=== PATIENT | female | born 1945 | race Caucasian/White ===

== ENCOUNTER 2024-07-05 10:10 | Inpatient (IN) | payer MEDICARE, SELFPAY ==
[2024-07-05] VITALS (16 sets, daily range): BP systolic 93–187; BP diastolic 50–101; PULSE 61–165; RESP 16–25; TEMP 36–36.8; O2SAT 91–98; BMI 25.4
--- NOTE | ~2024-07-05 | XR_ITS ---
EXAMINATION: XR CHEST CLINICAL INFORMATION: Chest pain. COMPARISON: None available. TECHNIQUE: Frontal view of the chest was obtained. FINDINGS: Diffuse interstitial and pulmonary vascular prominence with bilateral pleural effusions and airspace opacities, right greater than left. No pneumothorax. Unremarkable cardiomediastinal silhouette. Left breast implant with left axillary surgical clips. XR/XR chest 1V IMPRESSION: Interstitial and pulmonary vascular prominence with lateral pleural effusions and airspace opacities, right greater than left. Findings can be seen in the setting of pulmonary edema. Electronically signed by: Godwin Muhammad MD 07/05/2024 12:52 PM [facility]
--- NOTE | 2024-07-05 10:30 | ECG_ITS ---
Test Reason : palpatations Blood Pressure : / mmHG Vent. Rate : 115 BPM Atrial Rate : 384 BPM P-R Int : 000 ms QRS Dur : 092 ms QT Int : 358 ms P-R-T Axes : 000 019 079 degrees QTc Int : 495 ms Atrial flutter with variable A-V block Minimal voltage criteria for LVH, may be normal variant ( Serge product ) Nonspecific ST and T wave abnormality Abnormal ECG No previous ECGs available Referred By: Lino Thompson Electronically Signed By:ANA MARIA VILLARREAL MD
--- NOTE | 2024-07-05 10:32 | ED.ARRPALP ---
HPI - Arrhythmia/Palpitations General Chief Complaint: Arrhythmia/Palpitations Stated Complaint: SOB,AFIB Time Seen by Provider: 07/05/24 10:25 Source: patient and EMS Mode of arrival: EMS Limitations: no limitations History of Present Illness HPI narrative: this is a very pleasant 78 years old with no medical problems presented to the emergency department via ambulance complaining of shortness of breath or palpitation she was found by the global account director with heart rate about 190 irregularly irregular she received pre-hospital and 15 mg of diltiazem IV complaint: rapid heart beat Onset (ago): week(s) Duration: constant Severity: moderate Context: occurred during exertion Associated symptoms: denies other symptoms Related Data Home Medications ?Medication ?Instructions ?Recorded ?Confirmed multivitamin 1 tab PO DAILY 07/05/24 07/05/24 Allergies Allergy/AdvReac Type Severity Reaction Status Date / Time No Known Allergies Allergy Verified 07/05/24 10:21 Review of Systems Cardiovascular: Cardiovascular: Reports no additional cardiovascular complaints Respiratory: Respiratory: Reports no additional respiratory complaints [facility] Past Medical History [facility] Narrative: denies any major medical problems Social History Social History Advance Directives: No Advance Directives Information Provided: Yes Physical Exam Vital Signs: Vital Signs: Last Vital Signs Temp 98.3 F 07/05/24 10:19 Pulse 85 07/05/24 14:18 Resp 22 H 07/05/24 14:18 BP 176/93 H 07/05/24 14:18 Pulse Ox 94 07/05/24 14:18 O2 Del Method Room Air 07/05/24 14:18 BMI result Body Mass Index 25.4 Const: Other: she looks well she is not toxic she is tachycardic a bit tachypneic General: cooperative Nutritional Appearance: average body habitus HEENT: Head: Yes normal to inspection Ears: hearing grossly normal bilaterally General nose exam: Normal external nose present Face and sinus: Yes normal facial exam Mouth: Normal oral and palatal mucosa present Throat: Yes posterior oropharynx normal Neck: Other: no distress Neck: Yes normal visual inspection Chest: Chest palpation & inspection: normal inspection of the chest Resp: Effort & Inspection: normal respiratory effort Auscultation: clear to auscultation bilaterally Cardio: Jugular venous distension: no JVD Rate: regular rate and bradycardic Rhythm: abnormal rhythm GI: Inspection: Yes normal to inspection Auscultation: normal bowel sounds : General: Yes no CVA tenderness Back/Spine/Pelvis: Back: no CVA tenderness Skin: General skin exam: no rashes or lesions noted Medications Administered Generic Name Dose Route Start Last Admin Trade Name Freq PRN Reason Stop Dose Admin Diltiazem HCl 125 mg/ Sodium 125 mls @ 0 mls/hr 07/05/24 10:45 07/05/24 10:50 Chloride IVCONT 10 mg/hr .Q0M SARAY 10 mls/hr Administration Protocol Per Protocol Metoprolol Tartrate 25 mg 07/05/24 13:00 07/05/24 13:50 Metoprolol Tartrate 25 Mg Tablet PO 25 mg Q6H SARAY Administration Protocol Discontinued Medications Generic Name Dose Route Start Last Admin Trade Name Freq PRN Reason Stop Dose Admin Furosemide 20 mg 07/05/24 11:45 07/05/24 11:50 Furosemide 20 Mg/2 Ml Vial IVPUSH 07/05/24 11:46 20 mg ONCE ONE Administration Protocol Medical Decision Making Medical Decision Making [facility] Narrative: patient presented to the ED complaining of shortness of breath and tachycardia we will get EK Differential Diagnosis Differential Diagnoses: The differential diagnosis associated with the presentation includes AFib, CHF Admission/Observation Consideration of admission/observation: Escalation of care including admission/observation considered Consult Healthcare Provider Management of the patient was discussed with: Hospitalist Lab Data [facility] Lab Attestation statement: I reviewed the patient's lab results. 07/05/24 11:12 07/05/24 11:12 Labs: Lab Results 07/05/24 Range/Units 11:12 WBC 7.4 (4.8-10.8) X10*3/uL RBC 4.35 (4.20-5.50) X10*6/uL Hgb 12.4 (12.0-16.0) g/dl Hct 38.3 (37.0-47.0) % MCV 88.0 (80.0-98.0) fL MCH 28.5 (27.0-33.0) pg MCHC 32.4 (31.0-35.0) g/dl RDW 14.0 (11.0-16.0) % Plt Count 313 (160-400) X10*3/uL MPV 9.5 (9.4-12.3) fL Immature Gran % (Auto) 0.3 (0.0-0.4) % Neut % (Auto) 81.7 H (45-73) % Lymph % (Auto) 9.4 L (20-40) % [place] % (Auto) 6.5 (2-11) % Eos % (Auto) 1.8 (0-4) % Baso % (Auto) 0.3 (0-2) % Lymph # (Auto) 0.7 L (1.2-4.9) X10*3/uL [place] # (Auto) 0.5 (0.1-1.2) X10*3/uL Eos # (Auto) 0.1 (0.0-0.4) X10*3/uL Baso # (Auto) 0.0 (0.0-0.2) X10*3/uL Abs Immat Gran (auto) 0.02 (0.00-0.03) X10*3/uL Absolute Neuts (auto) 6.0 (2.0-8.3) x10*3/uL Absolute Nucleated RBC 0.000 (0.0-0.012) X10*3/uL Nucleated RBC % (auto) 0.0 (0.0-0.2) /100WBC Sodium 138 (135-145) mmol/L Potassium 3.7 (3.3-5.1) mmol/L Chloride 105 (96-108) mmol/L Carbon Dioxide 24 (22-29) mmol/L Anion Gap 13 (12-20) BUN 12 (9-16) mg/dL Creatinine 0.67 (0.5-1.4) mg/dL Estim Creat Clear Calc 55.6 Estimated GFR > 60 Random Glucose 112 (60-115) mg/dL Calcium 9.5 (8.4-10.2) mg/dL Total Bilirubin 0.5 (0.0-1.0) mg/dL AST 34 H (5-31) U/L ALT 35 H (0-31) U/L Alkaline Phosphatase 28 L (39-117) U/L Troponin I High Sens 11.9 (<3.5-17.0) ng/L B-Natriuretic Peptide 591 H (<100) pg/mL Total Protein 7.7 (6.5-8.0) g/dL Albumin 3.9 (3.5-5.0) g/dL TSH 1.27 (0.32-4.0) uIU/mL Independent Interpretation I performed an independent interpretation of an: EKG and Plain X-Ray Interpretation: I personally reviewed interpreted the EKG as rapid atrial fibrillation I personally reviewed interpreted chest x-ray as congestive heart failure and right pleural effusion Radiology Impression Discussion of test interpretation with radiology: I have reviewed the radiologist's reading. Critical Care Time Critical Care Time Critical Care Time: Yes Total Critical Care Time: 60 Attestation: IV cardizem and titration Discharge Plan Discharge Clinical Impression: Atrial fibrillation with rapid ventricular response Patient Disposition: Admitted As Inpatient
[2024-07-05] MEDS: dilTIAZem HCL 125 MG in 0.9 % Sodium Chloride 100 ML 10 MG IVCONT (10:50)
[2024-07-05 11:19] LABS: Basophils Percent Auto 0.3 % (0-2); Eosinophils Absolute Auto 0.1 X10*3/uL (0.0-0.4); Eosinophils Percent Auto 1.8 % (0-4); Hematocrit 38.3 % (37.0-47.0); Hemoglobin 12.4 g/dl (12.0-16.0); Imm Gran Abs Auto 0.02 X10*3/uL (0.00-0.03); Imm Gran Pct Auto 0.3 % (0.0-0.4); Lymphocytes Absolute Auto 0.7 X10*3/uL (1.2-4.9); Lymphocytes Percent Auto 9.4 % (20-40); MANUAL DIFF FLAG NO; Mean Corpuscular HGB Conc 32.4 g/dl (31.0-35.0); Mean Corpuscular Hemoglobin 28.5 pg (27.0-33.0); Mean Platelet Volume 9.5 fL (9.4-12.3); Monocytes Absolute Auto 0.5 X10*3/uL (0.1-1.2); Monocytes Percent Auto 6.5 % (2-11); Neutrophils Percent Auto 81.7 % (45-73); Platelet Count 313 X10*3/uL (160-400); Red Blood Count 4.35 X10*6/uL (4.20-5.50); White Blood Count 7.4 X10*3/uL (4.8-10.8)
[2024-07-05 11:34] LABS: Albumin Level 3.9 g/dL (3.5-5.0); Alkaline Phosphatase 28 U/L (39-117); Anion Gap 13 (12-20); Aspartate Amino Transferase 34 U/L (5-31); Bilirubin Total 0.5 mg/dL (0.0-1.0); Blood Urea Nitrogen 12 mg/dL (9-16); Calcium 9.5 mg/dL (8.4-10.2); Carbon Dioxide 24 mmol/L (22-29); Chloride 105 mmol/L (96-108); Creatinine Clr Calc Pharmacy 55.6; Estimated Glomerular Filt Rate > 60; Glucose Random 112 mg/dL (60-115); Potassium 3.7 mmol/L (3.3-5.1); Sodium 138 mmol/L (135-145); Total Protein 7.7 g/dL (6.5-8.0)
[2024-07-05 11:38] LABS: Troponin-I High Sensitivity 11.9 ng/L (<3.5-17.0)
[2024-07-05 11:42] LABS: B Type Natriuretic Peptide 591 pg/mL (<100)
[2024-07-05] MEDS: Furosemide 20 MG/2 ML VIAL IVPUSH ×2 (11:50→18:01)
[2024-07-05 11:52] LABS: Alanine Aminotransferase 35 U/L (0-31)
--- NOTE | 2024-07-05 12:22 | PHA.MEDREC ---
Pharmacy Consult ? Medication Reconciliation Pharmacy has completed the medication reconciliation. Spoke to patient at bedside, confirmed she takes no prescription which matches claims. She only takes a multivitamin daily.
--- NOTE | 2024-07-05 13:04 | P.HPHOSP_ITS ---
History of Present Illness Date of Service: 07/05/24 Chief Complaint: Shortness of breath/palpitations 78-year-old female patient with past medical history significant for breast cancer diagnosed in 2004 status post left breast mastectomy/status post chemotherapy moved to this area 11 years ago from [place], denies prior history of hypertension, no OH no CHF no diabetes, no hypertension presented to the emergency room with on and off episodes of palpitations and shortness of breath of couple weeks duration but this morning coming out of shower she noticed leg swelling therefore got concerned and came to the emergency room and noted to be in atrial fibrillation with rapid ventricular rate in 190s patient treated with 15 mg of IV diltiazem subsequently placed on IV diltiazem drip, received 1 dose of IV Lasix 20 mg, at present patient is feeling a little better less short of breath, complaining of persistent mild palpitations, denies chest pain, no lightheadedness, no dizziness, no syncope, workup in the ED showed normal electrolytes, renal function, troponin and CBC, have elevated BNP 591, EKG showed atrial flutter, will admit to [facility] due to new onset atrial fibrillation and acute CHF. Review of Systems 2 Review of Systems: General no headache no dizziness, no fever chills. CVS no chest pain, + palpitation. Respiratory no cough, shortness of breath. Gastrointestinal no nausea no vomiting, no abdominal pain no urgency, no frequency Musculoskeletal no pain All other system reviewed and are negative ON LICENSE OF [facility] Pertinent family history: No family history of atrial fibrillation, no diabetes, no hypertension Social History Advance Directives: No Advance Directives Information Provided: Yes Meds Allergies Allergy/AdvReac Type Severity Reaction Status Date / Time No Known Allergies Allergy Verified 07/05/24 10:21 Active Medications: Current Medications Acetaminophen (Acetaminophen 325 Mg Tablet) 650 mg PO Q6H PRN PRN Reason: Pain, Mild (Pain Scale 1-3), fever or headache Calcium Carbonate (Calcium Carbonate 750 Mg Tab.Chew) 750 mg PO Q4H PRN PRN Reason: Heartburn Furosemide (Furosemide 20 Mg/2 Ml Vial) 20 mg IVPUSH BID@0900,1800 SARAY; Protocol Diltiazem HCl 125 mg/ Sodium (Chloride) 125 mls @ 0 mls/hr IVCONT .Q0M SARAY; Protocol Last Admin: 07/05/24 10:50 Dose: 10 mg/hr, 10 mls/hr Magnesium Hydroxide (Milk Of Magnesia 30 Ml Oral.Susp) 30 ml PO DAILY PRN PRN Reason: Constipation Melatonin (Melatonin 3 Mg Tablet) 6 mg PO BEDTIME PRN PRN Reason: Insomnia Metoprolol Tartrate (Metoprolol Tartrate 25 Mg Tablet) 25 mg PO Q6H [facility]; Protocol Ondansetron HCl (Ondansetron Hcl 4 Mg/2 Ml Vial) 4 mg IVPUSH Q8H PRN PRN Reason: Nausea and Vomiting Polyethylene Glycol (Polyethylene Glycol 3350 17 Gm Powd.Pack) 17 gm PO DAILY PRN PRN Reason: Constipation Sodium Chloride (0.9 % Sodium Chloride Flush 3 Ml Syringe) 3 ml IVFLUSH QSHIFT [facility] Home Medications ?Medication ?Instructions ?Recorded ?Confirmed ?Last Taken ?Type multivitamin 1 tab PO DAILY 07/05/24 07/05/24 07/04/24 History Physical Exam 2 Vital Signs and Narrative: Vital Signs: Last Vital Signs Temp 98.3 F 07/05/24 10:19 Pulse 109 H 07/05/24 11:30 Resp 19 07/05/24 11:30 BP 166/101 H 07/05/24 11:50 Pulse Ox 94 07/05/24 11:30 O2 Del Method Room Air 07/05/24 11:30 BMI result Body Mass Index 25.4 Const: Other: General resting comfortably in no acute distress. Anicteric sclera Neck no JVD. CVS regular rate rhythm, Respiratory lungs bibasilar crackles, no respiratory distress Gastrointestinal abdomen soft, non tender, bowel sounds audible, no guarding , no rigidity. Extremities mild pitting edema. Neuro non focal Skin no rash Psych appropriate affect Results Labs 07/05/24 11:12 07/05/24 11:12 Labs: Laboratory Results - last 24 hr 07/05/24 11:12 MCV 88.0 MCH 28.5 MCHC 32.4 RDW 14.0 Plt Count 313 MPV 9.5 Immature Gran % (Auto) 0.3 Neut % (Auto) 81.7 H Lymph % (Auto) 9.4 L [place] % (Auto) 6.5 Eos % (Auto) 1.8 Baso % (Auto) 0.3 Lymph # (Auto) 0.7 L [place] # (Auto) 0.5 Eos # (Auto) 0.1 Baso # (Auto) 0.0 Abs Immat Gran (auto) 0.02 Absolute Neuts (auto) 6.0 Absolute Nucleated RBC 0.000 Nucleated RBC % (auto) 0.0 Anion Gap 13 Estim Creat Clear Calc 55.6 Estimated GFR > 60 Random Glucose 112 Calcium 9.5 Total Bilirubin 0.5 AST 34 H ALT 35 H Alkaline Phosphatase 28 L Troponin I High Sens 11.9 B-Natriuretic Peptide 591 H Total Protein 7.7 Albumin 3.9 Imaging Radiologist's Impressions: Impressions Chest X-Ray 07/05/24 10:30 IMPRESSION: Interstitial and pulmonary vascular prominence with lateral pleural effusions and airspace opacities, right greater than left. Findings can be seen in the setting of pulmonary edema. Electronically signed by: Godwin Muhammad MD 07/05/2024 12:52 PM [facility] Assessment and Plan (1) Atrial fibrillation with rapid ventricular response: Status: Acute Plan 78-year-old female with past medical history significant for breast cancer in 2004 with no other acute medical issues presented to [facility] due to symptoms of shortness of breath and palpitations of couple weeks duration this morning noted to have bilateral lower extremity edema therefore became concerned and came to ED and noted to be in atrial fibrillation with RVR, New onset atrial fibrillation/flutter No history of coronary artery disease/no hypertension/no history of alcohol abuse or smoking Continue IV Cardizem drip add metoprolol 25 q.6 hours wean Cardizem drip Chads vascular score of 3, will add Eliquis Stable electrolytes and renal function check TSH Echocardiogram Cardiology consult New onset unspecified congestive heart failure question related to atrial fibrillation Treat with IV Lasix 20 mg b.i.d. Strict Is&Os, daily weight Follow echo DVT prophylaxis with Eliquis Full code In my clinical judgment patient requires 2 night inpatient hospitalization for management of new onset atrial fibrillation with acute congestive heart failure requiring IV Cardizem drip and expert consultation. Quality Stroke Does the patient have a stroke diagnosis?: No VTE Prior VTE?: No VTE Risk Level:: Medical - moderate - high VTE Device Contraindication: Treatment Not Indicated VTE Drug Contraindication: N/A - Med Ordered
[2024-07-05 13:34] LABS: Thyroid Stimulating Hormone 1.27 uIU/mL (0.32-4.0)
[2024-07-05] MEDS: Metoprolol Tartrate 25 MG TABLET PO ×2 (13:50→19:57)
[2024-07-05] MEDS: 0.9 % Sodium Chloride Flush 3 ML SYRINGE IVFLUSH (17:24)
[2024-07-05] MEDS: Apixaban 5 MG TABLET PO (20:00)
[2024-07-06] VITALS (8 sets, daily range): BP systolic 122–139; BP diastolic 65–98; PULSE 78–90; RESP 16–18; TEMP 36.4–36.7; O2SAT 92–96
[2024-07-06] MEDS: Metoprolol Tartrate 25 MG TABLET PO ×4 (02:14→20:33)
[2024-07-06] MEDS: 0.9 % Sodium Chloride Flush 3 ML SYRINGE IVFLUSH ×3 (02:16→14:54)
--- NOTE | 2024-07-06 07:00 | CA_ITS ---
Transthoracic Echocardiogram Patient (Last, First, Middle): Cindy Khan, Gender: Female Date of : 1945 Age: 78 Procedure Date: 07/06/2024 Procedure Type: Transthoracic Echocardiogram Location: [facility] [place] Height: 152.4 cm Weight: 58.97 kg BSA: 1.55 m2 Heart Rate: 95 bpm BP: 166 / 101 mmHg Manager Clinical: PENG Harris MD: Hans Rosa MD Construction Plumber: Bony Sultana MD Symptoms: atfibrillation Study Quality: Adequate ECG Rhythm: Atrial Fibrillation Conclusions: - 1. Mildly reduced LV ejection fraction 45-50% with elevated filling pressures 2. At least moderately dilated left atrium 3. Mild aortic stenosis 4. Severe mitral calcification with mild mitral regurgitation 5. Normal calculated RV systolic pressure with mildly elevated right atrial pressures 6. No gross pericardial effusion Findings Left Ventricle Normal left ventricular cavity size. There is normal left ventricular wall thickness. The left ventricular systolic function is mildly decreased. The visually estimated ejection fraction is between 45-50%. Elevated filling pressures. E/E prime ratio is >15, consistent with elevated filling pressures. Right Ventricle Normal right ventricular cavity size. There is moderately decreased right ventricular systolic function. Atria The left atrium is moderately dilated. There is no evidence of interatrial shunt. The right atrium is mildly dilated. Aortic Valve There is mild calcification of the aortic valve. There is mild aortic valve stenosis. The mean gradient is 7 mmHg. The aortic valve area is 1.46 cm2. There is no aortic valve regurgitation. Mitral Valve There is mild anterior and severe posterior mitral leaflet thickening. There is severe mitral annular calcification. There is mild mitral valve regurgitation. There is no mitral valve stenosis. Pulmonic Valve The pulmonic valve is likely normal. Tricuspid Valve Normal tricuspid valve structure. There is mild tricuspid valve regurgitation. Mildly elevated right atrial pressure. There is no evidence of pulmonary hypertension. Great Vessels The pulmonary artery was not well visualized. There is no dilatation of the ascending aorta measuring 3.10 cm. Venous The inferior vena cava is mildly dilated and collapses less than 50% with inspiration. Pericardium/Pleural There is no evidence of pericardial effusion. Prior Study Comparison No prior study available for comparison. Measurements 2D Linear Measurements IVSd: 1.12 0.6-0.9/0.6-1.0 cm LVIDd: 3.82 3.9-5.3/4.2-5.9 cm LVIDd Index: 2.46 2.4-3.2/2.2-3.1 cm/m2 LVIDs: 2.33 2.0-3.6 cm LVPWd: 0.99 0.7-1.1 cm LA Diam: 4.60 2.7-3.8/3.0-4.0 cm LAIDs Index: 2.97 1.5-2.3 cm/m2 LV Mass: 158.90 67-162/88-224 g LV Mass Index: 102.51 43-95/49-115 g/m2 LVOT Diam: 1.90 3.0+(-)1.3 cm 2D Systolic Function EF 4C: 45.30 >55% EF 2C: 48.30 >55% Mitral Valve MV VTI: 0.27 MV Pk Filiberto: 1.40 MV Mn Filiberto: 0.81 MV Pk Grad: 8.00 MV Mn Grad: 3.00 MV Pk E: 1.36 MV Decel Time: 130.00 E'Lateral: 5.62 E'Medial: 5.88 E/E' Med: 23.10 E/E' Lat: 24.20 PHT: 38.00 MVA PHT: 5.79 MVA Continuity: 1.78 Decel [place]: 10.40 Aortic Valve AoV Pk Filiberto: 1.64 AoV Mn Filiberto: 1.26 AoV VTI: 0.33 AoV Pk Grad: 11.00 Aov Mn Grad: 7.00 JANEE Cont.VTI: 1.46 LVOT LVOT Pk Filiberto: 0.94 LVOT Mn Filiberto: 0.69 LVOT VTI: 0.17 LVOT Pk Grad: 4.00 LVOT Mn Grad: 2.00 LVOT Diam: 1.90 LVOT Area: 2.84 Diastolic Function MV Pk E: 1.36 E'Medial: 5.88 E/E' Med: 23.10 E' Laterial: 5.62 E/E' Lat: 24.20 Right Ventricle TAPSE (mm): 12.90 TVS' Filiberto: 8.16 Tricuspid Valve TR Pk Filiberto: 2.23 TR Pk Grad: 20.00 RA Press: 8.00 RVSP: 28.00 Great Vessels Aorta Sinus of Valsalva: 3.10 2.0-3.5 cm Ao Asc: 3.10 2.1-3.4 cm Ao Arch: 3.10 Pulmonary Valve PV Pk Filiberto: 0.89 Peak PV Grad: 3.00 Updated in Other Vendor System with Status of Final Bony Sultana MD electronically signed on 07/06/2024 4:41:36 PM with status of Final
--- NOTE | 2024-07-06 08:21 | MHC.CM.PN ---
CM met with Patient at bedside and addressed IMM with her; original was given to Patient and a copy has been placed on the chart. Patient lives alone in a Townhouse and she still works and is functionally independent. Home/self care is the goal and CM has initiated and will follow for dc planning. PCP is Dr. Virginia Aggarwal, HCP is Sister/Nahomi and Friend/Sharla will transport to home.
[2024-07-06 08:32] LABS: B Type Natriuretic Peptide 907 pg/mL (<100)
[2024-07-06 08:44] LABS: Anion Gap 16 (12-20); Blood Urea Nitrogen 14 mg/dL (9-16); Calcium 9.3 mg/dL (8.4-10.2); Carbon Dioxide 22 mmol/L (22-29); Chloride 101 mmol/L (96-108); Cholesterol 138 mg/dL (<200); Creatinine Clr Calc Pharmacy 47.7; Estimated Glomerular Filt Rate > 60; Glucose Random 99 mg/dL (60-115); HDL Cholesterol 40 mg/dL (>40); LDL Cholesterol Calculated 81 mg/dL (<100); Potassium 3.5 mmol/L (3.3-5.1); Sodium 135 mmol/L (135-145); Triglycerides 85 mg/dL (<150)
[2024-07-06] MEDS: Apixaban 5 MG TABLET PO ×2 (08:49→20:33)
[2024-07-06] MEDS: Furosemide 20 MG/2 ML VIAL IVPUSH ×2 (08:49→19:12)
--- NOTE | 2024-07-06 09:53 | PM.CNCAR ---
History of Present Illness History of Present Illness Date of Service: 07/06/24 Requesting physician: Hans Rosa Consult reason: atrial fibrillation and congestive heart failure Chief complaint: sob Narrative: I was consulted to see Cindy in cardiology consultation today for new onset atrial fibrillation findings suggestive of congestive heart failure. She has absolutely pleasant 78-year-old female who is very active and still works and remains very active, no prior chronic medical problems present hospital with progressive shortness of breath over the last couple weeks and then on day of presentation she notice shortness of breath with minimal exertion associated with leg edema and then felt her heart was racing. She was therefore decided to come to the emergency room. In the emergency room she was noted to be in atrial fibrillation rapid ventricular response which is new onset for her of unknown duration as well as elevated BNP and findings consistent with congestive heart failure. She was therefore admitted and started on rate control therapy initially with IV Cardizem subsequently on p.o. metoprolol rate is adequately controlled. She was also given Lasix IV with adequate urine output although not adequately measured. She says symptoms have improved significantly including leg edema. Today she feels well. She has been ambulating around the [place] and has had no new symptoms. Heart rate is better controlled. Review of Systems Constitutional: Constitutional: Reports no additional constitutional complaints Eyes: Eyes: Reports no additional eye complaints Cardiovascular: Cardiovascular: Denies chest pain, Denies syncope, Reports leg edema, Reports palpitations and Reports dyspnea on exertion Respiratory: Respiratory: Reports no additional respiratory complaints and Reports dyspnea on exertion Gastrointestinal: Gastrointestinal: Reports no additional gastrointestinal complaints Musculoskeletal: Musculoskeletal: Reports no additional musculoskeletal complaints Integumentary/Breasts: Skin/Breast: Reports system reviewed and no additional complaints, except as docu Neurologic: Reports system reviewed and no additional complaints, except as documented and Denies syncope Psychiatric: Psychiatric: Reports no additional psychiatric complaints Endocrine: Endocrine: Reports no additional endocrine complaints and Reports palpitations PMFSH Social History Social History Household Members: None Housing: House Do you presently have visiting nurse or other home services: No Patient Tobacco Use Status: Never used Tobacco e-Cigarette/Vaping Use: Never Used Second Hand Smoke Exposure: No service: No Meds Allergies Allergy/AdvReac Type Severity Reaction Status Date / Time No Known Allergies Allergy Verified 07/05/24 10:21 Active Medications: Current Medications Acetaminophen (Acetaminophen 325 Mg Tablet) 650 mg PO Q6H PRN PRN Reason: Pain, Mild (Pain Scale 1-3), fever or headache Apixaban (Apixaban 5 Mg Tablet) 5 mg PO BID [facility] Last Admin: 07/06/24 08:49 Dose: 5 mg Calcium Carbonate (Calcium Carbonate 750 Mg Tab.Chew) 750 mg PO Q4H PRN PRN Reason: Heartburn Furosemide (Furosemide 20 Mg/2 Ml Vial) 20 mg IVPUSH BID@0900,1800 [facility]; Protocol Last Admin: 07/06/24 08:49 Dose: 20 mg Magnesium Hydroxide (Milk Of Magnesia 30 Ml Oral.Susp) 30 ml PO DAILY PRN PRN Reason: Constipation Melatonin (Melatonin 3 Mg Tablet) 6 mg PO BEDTIME PRN PRN Reason: Insomnia Metoprolol Tartrate (Metoprolol Tartrate 25 Mg Tablet) 25 mg PO Q6H [facility]; Protocol Last Admin: 07/06/24 08:49 Dose: 25 mg Ondansetron HCl (Ondansetron Hcl 4 Mg/2 Ml Vial) 4 mg IVPUSH Q8H PRN PRN Reason: Nausea and Vomiting Polyethylene Glycol (Polyethylene Glycol 3350 17 Gm Powd.Pack) 17 gm PO DAILY PRN PRN Reason: Constipation Sodium Chloride (0.9 % Sodium Chloride Flush 3 Ml Syringe) 3 [facility] Last Admin: 07/06/24 08:49 Dose: 3 ml Home Medications ?Medication ?Instructions ?Recorded ?Confirmed ?Last Taken ?Type multivitamin 1 tab PO DAILY 07/05/24 07/05/24 07/04/24 History Physical Exam Vital Signs: Vital Signs: Last Vital Signs Temp 97.9 F 07/06/24 07:34 Pulse 90 07/06/24 08:49 Resp 18 07/06/24 07:34 BP 137/98 H 07/06/24 08:49 Pulse Ox 94 07/06/24 07:34 O2 Del Method Room Air 07/06/24 07:34 BMI result Body Mass Index 25.4 Const: General: cooperative, comfortable, no acute distress, well developed, alert, awake and Physically active Nutritional Appearance: average body habitus and well nourished Orientation/consciousness: patient oriented x3 Limitations: no limitations HEENT: Head: Yes normocephalic and Yes atraumatic Neck: Neck: Yes trachea midline, Yes supple and Yes no JVD Resp: Effort & Inspection: normal respiratory effort Auscultation: rales bilateral at the base Cardio: Rate: regular rate Rhythm: abnormal rhythm irregularly irregular Heart sounds: S1 normal heart sound present, S2 normal heart sound present, no click, no gallops and no murmurs GI: Auscultation: normal bowel sounds Skin: General skin exam: no rashes or lesions noted Neuro: General: patient oriented x3 and no focal motor deficits Extrem: General: Yes no clubbing, cyanosis or edema Objective Labs and Meds 07/05/24 11:12 07/06/24 07:43 Lab results: Laboratory Results - last 24 hr 07/05/24 07/06/24 11:12 07:43 WBC 7.4 RBC 4.35 Hgb 12.4 Hct 38.3 MCV 88.0 MCH 28.5 MCHC 32.4 RDW 14.0 Plt Count 313 MPV 9.5 Immature Gran % (Auto) 0.3 Neut % (Auto) 81.7 H Lymph % (Auto) 9.4 L [place] % (Auto) 6.5 Eos % (Auto) 1.8 Baso % (Auto) 0.3 Lymph # (Auto) 0.7 L [place] # (Auto) 0.5 Eos # (Auto) 0.1 Baso # (Auto) 0.0 Abs Immat Gran (auto) 0.02 Absolute Neuts (auto) 6.0 Absolute Nucleated RBC 0.000 Nucleated RBC % (auto) 0.0 Sodium 138 135 Potassium 3.7 3.5 Chloride 105 101 Carbon Dioxide 24 22 Anion Gap 13 16 BUN 12 14 Creatinine 0.67 0.78 Estim Creat Clear Calc 55.6 47.7 Estimated GFR > 60 > 60 Random Glucose 112 99 Calcium 9.5 9.3 Total Bilirubin 0.5 AST 34 H ALT 35 H Alkaline Phosphatase 28 L Troponin I High Sens 11.9 B-Natriuretic Peptide 591 H 907 H Total Protein 7.7 Albumin 3.9 Triglycerides 85 Cholesterol 138 LDL Cholesterol, Calc 81 HDL Cholesterol 40 L TSH 1.27 Imaging Radiologist's impression: Impressions Chest X-Ray 07/05/24 10:30 IMPRESSION: Interstitial and pulmonary vascular prominence with lateral pleural effusions and airspace opacities, right greater than left. Findings can be seen in the setting of pulmonary edema. Electronically signed by: Godwin Muhammad MD 07/05/2024 12:52 PM [facility] Assessment and Plan (1) Acute congestive heart failure: Status: Acute Patient admitted with acute congestive heart failure, new onset most likely related to her new onset atrial fibrillation. See below. Unclear as to what her LV systolic function. Will need echocardiogram. Clinically appears more improved but still has some rales at her lung basis. Advised to continue IV diuresis. Strict intake and output chart needs to be pursued. Continue to follow BNP and BNP tomorrow and replace electrolytes as needed. Please add Jardiance 10 mg to her regimen. Further treatment based on the findings of her echocardiogram and may require further neurohormonal modulation depending on her LV ejection fraction. Agree with metoprolol and rate control. Will continue to follow with her. Management was discussed with her. (2) Atrial fibrillation with rapid ventricular response: Status: Acute Atrial fibrillation rapid ventricular response. Discussed pathophysiology of atrial fibrillation details. Requires rate control for now. Unknown duration of atrial fibrillation therefore would avoid rhythm control right away. However if she has persistent and difficult to treat heart failure or difficult to control rate will pursue ASHANTI guided cardioversion. For now agree with Eliquis 5 mg b.i.d. for anticoagulation metoprolol for rate control. Echocardiogram to assess for LV systolic and diastolic function biatrial chamber size. Check TSH. Will follow with her Procedures Date of Service Date of Service: 07/06/24
--- NOTE | 2024-07-06 12:59 | P.PNIM_ITS ---
Subjective Subjective Date of Service: 07/06/24 Interval History: Feeling better denies shortness of breath, no palpitations, slept well last night, no acute events overnight. Review of Systems All other system reviewed and are negative. Physical Exam 2 Vital Signs: Vital Signs: Last Vital Signs Temp 97.7 F 07/06/24 11:13 Pulse 82 07/06/24 11:13 Resp 18 07/06/24 11:13 BP 139/77 07/06/24 11:13 Pulse Ox 96 07/06/24 11:13 O2 Del Method Room Air 07/06/24 11:13 BMI result Body Mass Index 25.4 Const: Other: General resting comfortably in no acute distress. Anicteric sclera Neck no JVD. CVS regular rate rhythm, Respiratory lungs rt. basilar crackles, no respiratory distress Gastrointestinal abdomen soft, non tender, bowel sounds audible, no guarding , no rigidity. Extremities edema resolved. Neuro non focal Skin no rash Psych appropriate affect Objective Data Active Medications Acetaminophen (Acetaminophen 325 Mg Tablet) 650 mg PO Q6H PRN PRN Reason: Pain, Mild (Pain Scale 1-3), fever or headache Apixaban (Apixaban 5 Mg Tablet) 5 mg PO BID [facility] Last Admin: 07/06/24 08:49 Dose: 5 mg Documented By: NIKKI Calcium Carbonate (Calcium Carbonate 750 Mg Tab.Chew) 750 mg PO Q4H PRN PRN Reason: Heartburn Furosemide (Furosemide 20 Mg/2 Ml Vial) 20 mg IVPUSH BID@0900,1800 [facility]; Protocol Last Admin: 07/06/24 08:49 Dose: 20 mg Documented By: NIKKI Magnesium Hydroxide (Milk Of Magnesia 30 Ml Oral.Susp) 30 ml PO DAILY PRN PRN Reason: Constipation Melatonin (Melatonin 3 Mg Tablet) 6 mg PO BEDTIME PRN PRN Reason: Insomnia Metoprolol Tartrate (Metoprolol Tartrate 25 Mg Tablet) 25 mg PO Q6H [facility]; Protocol Last Admin: 07/06/24 08:49 Dose: 25 mg Documented By: NIKKI Ondansetron HCl (Ondansetron Hcl 4 Mg/2 Ml Vial) 4 mg IVPUSH Q8H PRN PRN Reason: Nausea and Vomiting Polyethylene Glycol (Polyethylene Glycol 3350 17 Gm Powd.Pack) 17 gm PO DAILY PRN PRN Reason: Constipation Sodium Chloride (0.9 % Sodium Chloride Flush 3 Ml Syringe) 3 ml IVFLUSH QSHIFT [facility] Last Admin: 07/06/24 08:49 Dose: 3 ml Documented By: NIKKI Labs 07/05/24 11:12 07/06/24 07:43 Labs: Laboratory Results - last 24 hr 07/05/24 07/06/24 11:12 07:43 Anion Gap 16 Estim Creat Clear Calc 47.7 Estimated GFR > 60 Random Glucose 99 Calcium 9.3 B-Natriuretic Peptide 907 H Triglycerides 85 Cholesterol 138 LDL Cholesterol, Calc 81 HDL Cholesterol 40 L TSH 1.27 Assessment and Plan (1) Acute congestive heart failure: Status: Acute (2) Atrial fibrillation with rapid ventricular response: Status: Acute Plan 78-year-old female with past medical history significant for breast cancer in 2004 with no other acute medical issues presented to [facility] due to symptoms of shortness of breath and palpitations of couple weeks duration this morning noted to have bilateral lower extremity edema therefore became concerned and came to ED and noted to be in atrial fibrillation with RVR, New onset atrial fibrillation/flutter No history of coronary artery disease/no hypertension/no history of alcohol abuse or smoking s/p IV Cardizem drip ,hr improved cont. metoprolol 25 q.6 hours Chads vascular score of 3, on Eliquis Stable electrolytes and renal function, TSH 1.27 Echocardiogram pend Seen by Cardiology they recommend to continue above treatment , added Jardiance 10 mg and follow echo New onset unspecified congestive heart failure question related to atrial fibrillation Continue IV Lasix 20 mg b.i.d. BNP remains elevated 591 bumped to 907, stable electrolytes and renal function Strict Is&Os, daily weight Follow echo, BMP and BNP DVT prophylaxis with Eliquis Full code In my clinical judgment patient requires 2 night inpatient hospitalization for management of new onset atrial fibrillation with acute congestive heart failure requiring IV Cardizem drip and expert consultation. Quality Stroke Does the patient have a stroke diagnosis?: No VTE Prior VTE?: No VTE Risk Level:: Medical - moderate - high VTE Device Contraindication: Treatment Not Indicated VTE Drug Contraindication: N/A - Med Ordered
[2024-07-06] MEDS: Empagliflozin 10 MG TABLET PO (14:51)
[2024-07-07] VITALS: BP 135/64; PULSE 83; RESP 20; TEMP 36.4; O2SAT 91
[2024-07-07 03:58] VITALS: BP 154/73; PULSE 83; RESP 20; TEMP 36.3; O2SAT 92
[2024-07-07] MEDS: Metoprolol Tartrate 25 MG TABLET PO ×2 (04:50→08:16)
[2024-07-07 06:34] LABS: Anion Gap 14 (12-20); Blood Urea Nitrogen 15 mg/dL (9-16); Calcium 9.4 mg/dL (8.4-10.2); Carbon Dioxide 25 mmol/L (22-29); Chloride 104 mmol/L (96-108); Creatinine Clr Calc Pharmacy 44.3; Estimated Glomerular Filt Rate > 60; Glucose Random 97 mg/dL (60-115); Potassium 3.5 mmol/L (3.3-5.1); Sodium 139 mmol/L (135-145)
[2024-07-07 06:47] LABS: B Type Natriuretic Peptide 784 pg/mL (<100)
[2024-07-07 07:27] VITALS: BP 132/78; PULSE 74; RESP 12; TEMP 36.1; O2SAT 91
[2024-07-07] MEDS: Furosemide 20 MG/2 ML VIAL IVPUSH (08:15)
[2024-07-07] MEDS: Empagliflozin 10 MG TABLET PO (08:16)
[2024-07-07] MEDS: Apixaban 5 MG TABLET PO (08:16)
[2024-07-07] MEDS: 0.9 % Sodium Chloride Flush 3 ML SYRINGE IVFLUSH ×2 (08:16)
--- NOTE | 2024-07-07 09:27 | PM.PNCARD ---
Subjective Subjective Date of Service: 07/07/24 Principal diagnosis: Atrial fibrillation, CHF Interval history: Echocardiogram yesterday showed mildly reduced LV ejection fraction 45-50%. Mildly elevated right atrial pressures were noted. Patient says she has diuresed well overnight. Feeling a lot better this morning. Has been ambulating. Her BNP is only reduced from 900 to 700 range though. Intake and output chart are not well maintained. She has been receiving IV Lasix and Jardiance. She denies any palpitations. Heart rate is better controlled. Review of Systems Constitutional: Reports no additional constitutional complaints Eyes: Reports no additional eye complaints Cardiovascular: Reports no additional cardiovascular complaints Respiratory: Reports no additional respiratory complaints Genitourinary: Reports no additional female genitourinary complaints Musculoskeletal: Reports no additional musculoskeletal complaints Skin/Breast: Reports system reviewed and no additional complaints, except as docu Physical Exam Vital Signs: Last Vital Signs Temp 97.0 F 07/07/24 07:27 Pulse 74 07/07/24 07:27 Resp 12 07/07/24 07:27 BP 132/78 07/07/24 07:27 Pulse Ox 91 L 07/07/24 07:27 O2 Del Method Room Air 07/07/24 07:27 BMI result Body Mass Index 25.4 Neck Neck: Yes trachea midline, Yes supple and Yes no JVD Resp Effort & Inspection: normal respiratory effort Auscultation: clear to auscultation bilaterally Cardio Jugular venous distension: no JVD Rhythm: abnormal rhythm irregularly irregular Heart sounds: S1 normal heart sound present, S2 normal heart sound present, no click, no gallops and no murmurs GI Auscultation: normal bowel sounds Skin General skin exam: no rashes or lesions noted Neuro General: no focal motor deficits Extrem General: Yes no clubbing, cyanosis or edema Objective Labs and Meds 07/05/24 11:12 07/07/24 06:02 Lab results: Laboratory Results - last 24 hr 07/07/24 06:02 Sodium 139 Potassium 3.5 Chloride 104 Carbon Dioxide 25 Anion Gap 14 BUN 15 Creatinine 0.84 Estim Creat Clear Calc 44.3 Estimated GFR > 60 Random Glucose 97 Calcium 9.4 B-Natriuretic Peptide 784 H Progress Note: A&P Assessment and plan (1) Acute congestive heart failure: Status: Acute Assessment and Plan: Patient admitted with acute congestive heart failure clinically doing very well although BNP is not downtrending it to more than 50% to the high as BNP. This can portend high risk of readmission in the future. Although clinically she is doing very well and does not appear to be in heart failure and BNP could be lagging in measurement. She insistent wanting to go home. I think is reasonable to send her home with adequate instructions. Can send her on Jardiance 10 mg along with Lasix 40 mg. Continue with metoprolol for neurohormonal modulation. Will set up for follow-up in 7 days in the office after blood work. Given mildly reduced LV ejection fraction will pursue ischemic workup as an outpatient as well. (2) Atrial fibrillation with rapid ventricular response: Status: Acute Assessment and Plan: Atrial fibrillation with better rate control. She has moderate left atrial enlargement which probably suggest longer duration persistent atrial fibrillation and therefore will most likely require antiarrhythmic drug support. She has no other reason for left atrial enlargement including hypertension, sleep apnea, valvular heart disease. Continue metoprolol and Eliquis. Will set up for outpatient amiodarone loading prior to pursuing synchronized cardioversion. Plan was discussed with her in details. She understands agrees. Will follow up as outpatient. Thank you for allowing me to partake in his care Time Spent With Patient Time: Total time managing care of this patient today ____ minutes. Progress Note: Quality Stroke Does the patient have a stroke diagnosis?: No Procedures Date of Service Date of Service: 07/07/24
--- NOTE | 2024-07-07 11:07 | PM.DS ---
DS: Providers Provider Date of Service: 07/07/24 Date of admission: 07/05/24 12:56 Primary care physician: Virginia Aggarwal MD Consults: 07/05/24 12:56 Consult to Cardiology Routine Consulting Provider: [facility] [place] [place] [facility] Reason for consultation: at fib with rvr/chf Has provider been notified: No DS: Diagnosis Discharge Diagnosis (1) Acute congestive heart failure: Status: Acute (2) Atrial fibrillation with rapid ventricular response: Status: Acute DS: Summary Hospital Course Hospital Course: History of presenting illness: Date of Service: 07/05/24 Chief Complaint: Shortness of breath/palpitations 78-year-old female patient with past medical history significant for breast cancer diagnosed in 2004 status post left breast mastectomy/status post chemotherapy moved to this area 11 years ago from [place], denies prior history of hypertension, no [place] no CHF no diabetes, no hypertension presented to the emergency room with on and off episodes of palpitations and shortness of breath of couple weeks duration but this morning coming out of shower she noticed leg swelling therefore got concerned and came to the emergency room and noted to be in atrial fibrillation with rapid ventricular rate in 190s patient treated with 15 mg of IV diltiazem subsequently placed on IV diltiazem drip, received 1 dose of IV Lasix 20 mg, at present patient is feeling a little better less short of breath, complaining of persistent mild palpitations, denies chest pain, no lightheadedness, no dizziness, no syncope, workup in the ED showed normal electrolytes, renal function, troponin and CBC, have elevated BNP 591, EKG showed atrial flutter, will admit to [facility] due to new onset atrial fibrillation and acute CHF. Hospital course: 78-year-old female with past medical history significant for breast cancer in 2004 with no other acute medical issues presented to [facility] due to symptoms of shortness of breath and palpitations of couple weeks duration since also noted to have bilateral lower extremity edema therefore came to ED and noted to be in atrial fibrillation with RVR, and admitted to [facility] telemetry unit. New onset atrial fibrillation/flutter, treated with IV Cardizem drip and place on metoprolol, ventricular rate improved but remain in atrial fibrillation due to chads vascular score of 3 started on Eliquis, TSH 1.27 had normal electrolytes, echocardiogram showed an EF 45-50% with left atrial enlargement and moderately decreased right ventricular function, patient was followed closely by cardiology they recommend outpatient follow-up for ischemic workup and also for possible amiodarone for rhythm control, and cardioversion if fails with amiodarone therapy. New onset congestive heart failure with reduced EF, treated with IV Lasix with good response , with complete resolution of edema and shortness of breath, noted to have persistent elevated BNP likely lag behind clinical response, will discharge home on Lasix 40 mg and Jardiance 10 mg recommend close outpatient follow-up with Cardiology in 1 week. Time Attestation Discharge Coordination Time (in mins): 40 Quality: Safe Use of Opioids Does Pt have an Active Cancer Diagnosis on the Problem List?: No Quality: Stroke Does the patient have a stroke diagnosis?: No Physical Exam Vital Signs: Vital Signs: Last Vital Signs Temp 97.0 F 07/07/24 07:27 Pulse 74 07/07/24 07:27 Resp 12 07/07/24 07:27 BP 132/78 07/07/24 07:27 Pulse Ox 91 L 07/07/24 07:27 O2 Del Method Room Air 07/07/24 07:27 BMI result Body Mass Index 25.4 Const: Other: General resting comfortably in no acute distress. Anicteric sclera Neck no JVD. CVS irregular rate rhythm, Respiratory lungs clear to auscultation, no respiratory distress Gastrointestinal abdomen soft, non tender, bowel sounds audible, no guarding , no rigidity. Extremities edema resolved. Neuro non focal Skin no rash Psych appropriate affect DS: Data Data Completed and Pending Labs on day of discharge: Laboratory Results - last 24 hr 07/07/24 06:02 Sodium 139 Potassium 3.5 Chloride 104 Carbon Dioxide 25 Anion Gap 14 BUN 15 Creatinine 0.84 Estim Creat Clear Calc 44.3 Estimated GFR > 60 Random Glucose 97 Calcium 9.4 B-Natriuretic Peptide 784 H Discharge Plan Discharge Anticipated Discharge Date/Time: 07/07/24 11:07 Patient Disposition: Home, Self-Care Discharge Diagnosis: New onset atrial fibrillation Acute CHF with reduced EF Referrals: Virginia Aggarwal MD [Primary Care Provider] - 1 Week Discharge Medications: New Eliquis 5 mg Tablet 5 mg PO BID Qty: 60 0RF Jardiance 10 mg Tablet 10 mg PO DAILY Qty: 30 0RF furosemide [Lasix] 40 mg tablet 40 mg PO DAILY Qty: 30 0RF metoprolol succinate 100 mg tablet extended release 24 hr 100 mg PO DAILY Qty: 30 0RF Continued multivitamin Tablet 1 tab PO DAILY Discharge Orders: Discharge Order (Routine); Ordered 07/07/24 Ordered By: Hans Rosa Diet: Low salt diet Activity on Discharge: As tolerated Stand Alone Forms: Patient Portal Discharge page Print Language: Turkish Care Plan Goals: Atrial fibrillation take metoprolol XL 100 mg starting tomorrow morning and Eliquis 1 tablet twice daily Start Lasix 40 mg starting tomorrow morning Take Jardiance 10 mg 1 tablets starting tomorrow morning Returned to check with recurrent episodes of shortness of breath or palpitations. Health Concerns: New onset atrial fibrillation Plan of Treatment: Outpatient follow-up with primary care physician call for appointment. Outpatient follow-up with Cardiology, they will set up an appointment Assessment: As above
--- NOTE | 2024-07-07 11:21 | MHC.CM.PN ---
Patient has been medically cleared for dc to home today, self care. Last IMM addressed yesterday.
[2024-07-07 11:41] VITALS: BP 119/74; PULSE 99; RESP 12; TEMP 36.1; O2SAT 95
[2024-07-07] MEDS: Furosemide 20 MG TABLET PO (11:46)
[2024-07-07] MEDS: Metoprolol Succinate ER 50 MG TAB.ER.24H PO (11:49)
== END 2024-07-07 14:17 | disposition home or self-care (01) | DRG 308 ==
LOC: HO.ED 11:50 → HO.EDOVER 13:01 → HO.IMC 19:17
PROVIDERS: Admitting Provider Hospitalist; Emergency Provider Emergency Medicine; PCP Family Medicine; Visit Provider Hospitalist
DX: I48.19 Other persistent atrial fibrillation (principal); I50.21 Acute systolic (congestive) heart failure; Z85.3 Personal history of malignant neoplasm of breast; Z90.12 Acquired absence of left breast and nipple; Z79.899 Other long term (current) drug therapy
CPT/HCPCS: 36415; 71045; 80048; 80053; 80061; 83880; 84443; 84484; 85025; 93005; 93306; 99285; J1940; Q9957

== ENCOUNTER → 2024-07-05 10:30 | Outpatient (BNV) | payer MEDICARE, SELFPAY | PROVIDERS: Admitting Provider Hospitalist; Emergency Provider Emergency Medicine; PCP Family Medicine; Visit Provider Internal Medicine Cardiovascular Disease | DX: I48.91 Unspecified atrial fibrillation (principal) | CPT/HCPCS: 93010 ==

== ENCOUNTER 2024-07-05 12:56 | Outpatient (BNV) | payer MEDICARE, SELFPAY | END 2024-07-06 07:00 | PROVIDERS: Admitting Provider Hospitalist; Emergency Provider Emergency Medicine; PCP Family Medicine; Visit Provider Internal Medicine Cardiovascular Disease | DX: I35.0 Nonrheumatic aortic (valve) stenosis (principal); I34.0 Nonrheumatic mitral (valve) insufficiency; I36.1 Nonrheumatic tricuspid (valve) insufficiency | CPT/HCPCS: 93306 ==

== ENCOUNTER → 2024-07-05 12:56 | Outpatient (BNV) | payer MEDICARE, SELFPAY | PROVIDERS: Admitting Provider Hospitalist; Emergency Provider Emergency Medicine; PCP Family Medicine; Visit Provider Internal Medicine Cardiovascular Disease | DX: I50.9 Heart failure, unspecified (principal); I48.91 Unspecified atrial fibrillation | CPT/HCPCS: 99222 ==

== ENCOUNTER → 2024-07-05 12:56 | Outpatient (BNV) | payer MEDICARE, SELFPAY | PROVIDERS: Admitting Provider Hospitalist; Emergency Provider Emergency Medicine; PCP Family Medicine; Visit Provider Hospitalist | DX: I50.9 Heart failure, unspecified (principal); I48.91 Unspecified atrial fibrillation | CPT/HCPCS: 99223; 99232; 99239 ==

== ENCOUNTER 2024-07-19 09:40 | Outpatient (REF) | payer MEDICARE, SELFPAY ==
[2024-07-19 13:57] LABS: B Type Natriuretic Peptide 593 pg/mL (<100)
[2024-07-19 14:30] LABS: Anion Gap 12 (12-20); Blood Urea Nitrogen 19 mg/dL (9-16); Calcium 9.4 mg/dL (8.4-10.2); Carbon Dioxide 31 mmol/L (22-29); Chloride 102 mmol/L (96-108); Estimated Glomerular Filt Rate > 60; Glucose Random 77 mg/dL (60-115); Sodium 141 mmol/L (135-145)
== END 2024-07-19 09:41 | disposition home or self-care (01) ==
LOC: HO.HMGCLDS 09:40
PROVIDERS: PCP Family Medicine; Visit Provider Internal Medicine Cardiovascular Disease
DX: I48.91 Unspecified atrial fibrillation (principal); I50.9 Heart failure, unspecified
CPT/HCPCS: 36415; 80048; 83880

== ENCOUNTER 2024-08-16 08:22 | Outpatient (AMB) | payer MEDICARE, SELFPAY ==
[2024-08-16 08:28] VITALS: BP 160/80; PULSE 113; BMI 25.0
--- NOTE | 2024-08-16 08:28 | MHC.OFFVIS ---
Vital Signs 08/16/24 08:28 Height 5 ft Weight 127 lb 13.89 oz BMI 25.0 BP 160/80 H Blood Pressure Location Rt brachial Position Sitting Pulse 113 H Pulse Source Monitor Intake Visit Reasons: 4 week follow-up [facility] [place] Personalized Living Manager Nurse Required: No Allergies No Known Allergies Allergy (Verified 08/16/24 08:31) Medication List - Last Reconciled 08/16/24 by Berkley Osorio NP-C furosemide (Lasix) 40 mg PO DAILY multivitamin 1 tab PO DAILY HPI HPI 4 week follow-up [facility] [place]: Details: Cindy is a 78-year-old female with past medical history of breast CA status post left mastectomy and chemotherapy 2004 who recently presented to [facility] [place] with report of shortness of breath and edema. She was noted to have new finding of AFib RVR that was treated with heart rate control. She also had acute heart failure with BNP 591. She was diuresed and started on p.o. Lasix. Echocardiogram showed mildly reduced EF. She now presents for follow-up. Today she states she ran out of her metoprolol and Eliquis about 10 days ago. She had run out of Lasix as well and started to get swelling in her ankles. She called this office and requested a refill on the Lasix however not the other medications. She tells me she was never able to get Jardiance as her insurance did not approve that one. The Eliquis cost her over 500 dollars for a 1 month supply which she did pay. She is requesting another option. She tells me she has been feeling good with no shortness of breath, PND, orthopnea and no further edema since restarting Lasix. No chest discomfort at rest or with activity. No heart palpitations, lightheadedness, presyncope, syncope. 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 [facility] Social History Household Members: None Housing: House Do you presently have visiting nurse or other home services: No Patient Tobacco Use Status: Never used Tobacco e-Cigarette/Vaping Use: Never Used Second Hand Smoke Exposure: No service: No Review of Systems Const All systems reviewed & are unremarkable except as noted in HPI and below ENT Denies dizziness Card Denies chest pain, Denies chest pain at rest, Denies chest pain with activity, Denies rapid heart rate, Denies pedal edema, Denies edema, Denies leg edema, Denies lightheadedness, Denies palpitations, Denies dyspnea, Denies dyspnea on exertion and Denies orthopnea Resp Denies cough, Denies dyspnea and Denies dyspnea on exertion GI Denies hematochezia and Denies change in stool character Musc Denies abnormal gait, Denies limited range of motion, Denies muscle cramps, Denies muscle weakness, Denies numbness, Denies radiating pain into limb, Denies stiffness and Denies tingling Neuro Denies abnormal gait, Denies dizziness, Denies numbness and Denies tingling Endo Denies palpitations Physical Exam Vital Signs: Last Vital Signs Pulse 113 H 08/16/24 08:28 BP 160/80 H 08/16/24 08:28 BMI result Body Mass Index 25.0 Const General: cooperative, healthy appearing, comfortable and no acute distress Orientation/consciousness: patient oriented x3 Neck Neck: Yes normal visual inspection and Yes no JVD Resp Effort & Inspection: normal respiratory effort Auscultation: clear to auscultation bilaterally, no crackles, no rales, no rhonchi and no wheezes Cardio Rate: tachycardic Rhythm: abnormal rhythm Heart sounds: S1 normal heart sound present, S2 normal heart sound present, no murmurs and no rubs Neuro General: patient oriented x3 Extrem General: Yes normal to inspection, No no pedal edema and No calf tenderness Psych Appearance: grossly normal Mental Status: mental status grossly normal Speech and movement: Normal speech and movement present Office Procedures EKG Details: Today, read by me Atrial fibrillation with RVR, rate 113, QTc 466ms [id number], Complete Assessment & Plan Assessment & Plan (1) Atrial fibrillation with rapid ventricular response: Code(s): I48.91 - Unspecified atrial fibrillation Category: Medical Plan: New finding of atrial fibrillation at time of hospital admission for shortness of breath, edema -acute Congestive heart failure. She was treated with IV diltiazem then transitioned over to metoprolol. Chads Vasc score of 3 and she was started on Eliquis for anticoagulation. Echocardiogram showed EF 45-50%, left atrium moderately enlarged, moderate decrease in the RV systolic function, severe mitral calcification and mild MR. She remained in AFib at the time of discharge. Today she reports that she ran out of metoprolol and Eliquis approximately 10 days ago. EKG today is showing atrial fibrillation with RVR, rate 113. She tells me she has not been noticing heart palpitations or shortness of breath. She had run out of Lasix and was getting recurrent leg edema. She did request a refill on that medication and the edema has since resolved. The initial outpatient plan was to start amiodarone load and plan for cardioversion however she has not been on anticoagulation for the last 10 days. Will restart metoprolol at 50 mg b.i.d.. She will check with her insurance today regarding their preference for anticoagulation. The Eliquis was extremely costly for her. Stroke risk while off anticoagulation reviewed with her and she states understanding. Instructed to monitor her heart rate and blood pressure periodically at home. Will arrange for cardiology follow-up in 3-4 weeks to reassess heart rhythm, med compliance. At that time may consider start of amiodarone and plan for cardioversion if needed. Nuclear stress test is pending and currently scheduled for September 2024. (2) Acute congestive heart failure: Code(s): I50.9 - Heart failure, unspecified Category: Medical Plan: At time of recent admission she was found to have new onset acute Congestive heart failure, most likely related to uncontrolled AFib rates. AFib being treated as above. She is on Lasix 40 mg daily. She does not appear fluid overloaded on exam today. Her EF is mildly reduced and likely continues to be that way since she has not been properly rate controlled. Signs and symptoms of heart failure reviewed with her. Emergency care if ever needed for symptoms. Jardiance previously ordered however she states her insurance company did not allow it. She is calling her insurance today and checking to see if she can have Jardiance or Farxiga. (3) Hospital discharge follow-up: Code(s): Z09 - Encounter for follow-up examination after completed treatment for conditions other than malignant neoplasm Category: Medical Plan: As above Plan Time spent on chart review, documentation, interview and assessment Medications: New metoprolol tartrate 50 mg PO BID 60 tabs 3RF Discontinued empagliflozin (Jardiance) Discontinued Reason: Patient no longer taking 10 mg PO DAILY 30 tabs 0RF metoprolol succinate ER Discontinued Reason: Patient no longer taking 100 mg PO DAILY 30 tabs 0RF apixaban (Eliquis) Discontinued Reason: Patient no longer taking 5 mg PO BID 60 tabs 0RF Coding Level of Care Code Est Pt Level 4 (63478) Complex EM visit Add On G2211 Diagnoses Atrial fibrillation with rapid ventricular response I48.91 Acute congestive heart failure I50.9 Hospital discharge follow-up Z09 CPT Codes EKG - CPT: 52022-[id number], Complete ([id number]) Time Spent (min) 32
== END 2024-08-16 09:00 | disposition home or self-care (01) ==
PROVIDERS: PCP Family Medicine; Visit Provider Nurse Practitioner Family
DX: I48.91 Unspecified atrial fibrillation (principal); I50.9 Heart failure, unspecified; Z09 Encounter for follow-up examination after completed treatment for conditions other than malignant neoplasm
CPT/HCPCS: 93010; 99214; G2211

== ENCOUNTER → 2024-08-16 08:22 | Outpatient (BNVA) | payer MEDICARE, SELFPAY | PROVIDERS: PCP Family Medicine; Visit Provider Nurse Practitioner Family | DX: I48.91 Unspecified atrial fibrillation (principal); I50.9 Heart failure, unspecified; Z09 Encounter for follow-up examination after completed treatment for conditions other than malignant neoplasm; Z79.01 Long term (current) use of anticoagulants | CPT/HCPCS: 93005; 99212 ==

== ENCOUNTER 2024-09-07 08:29 | Outpatient (AMB) | payer MEDICARE, SELFPAY ==
[2024-09-07 08:34] VITALS: BP 142/70; PULSE 97; BMI 24.8
--- NOTE | 2024-09-07 08:34 | A.OFFVIS_ITS ---
Vital Signs 09/07/24 08:34 Height 5 ft Weight 126 lb 15.78 oz BMI 24.8 BP 142/70 H Blood Pressure Location Rt brachial Position Sitting Pulse 97 Pulse Source Monitor Intake Visit Reasons: 3 week follow-up Energy Advisor Required: No Allergies No Known Allergies Allergy (Verified 09/07/24 08:35) Medication List - Last Reconciled 09/07/24 by Berkley Osorio GLOBAL REGULATORY AFFAIRS MANAGER-C apixaban (Eliquis) 5 mg PO BID 30 days furosemide (Lasix) 40 mg PO DAILY metoprolol tartrate 50 mg PO BID multivitamin 1 tab PO DAILY HPI HPI 3 week follow-up: Details: Cindy is a 78-year-old female with past medical history of breast CA status post left mastectomy and chemotherapy 2004 who recently presented [place] [facility] report of shortness of breath and edema. She was noted to have new finding of AFib RVR that was treated with heart rate control. She also had acute heart failure with BNP 591. She was diuresed and started on p.o. Lasix. Echocardiogram showed mildly reduced EF. On follow up visit she had run out of lasix, Metoprolol and Eliquis and they were restarted. now presents for follow- up. Today she states she has been taking her medications consistently since her 08/16/24 appnt. days ago. She feels that her chest is unsettled . No chest discomfort at rest or with activity. Mild sob if she overexerts, which she does not feel is new. No PND, orthopnea or recurrent edema. No lightheadedness, presyncope, syncope. 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 She could not afford Jardiance. She is paying over $500/ month for Eliquis until her $2000 medication deductible is reached. Then she is unsure what the cost will be. [facility] Social History Household Members: None Housing: House Do you presently have visiting nurse or other home services: No Patient Tobacco Use Status: Never used Tobacco e-Cigarette/Vaping Use: Never Used Second Hand Smoke Exposure: No service: No Review of Systems Const All systems reviewed & are unremarkable except as noted in HPI and below ENT Denies dizziness Card Details: unsettled feeling in her chest Denies chest pain, Denies chest pain at rest, Denies chest pain with activity, Denies rapid heart rate, Denies pedal edema, Denies edema, Denies leg edema, Denies lightheadedness, Denies palpitations, Denies dyspnea, Denies dyspnea on exertion and Denies orthopnea Resp Denies cough, Denies dyspnea and Denies dyspnea on exertion GI Denies hematochezia and Denies change in stool character Musc Denies abnormal gait, Reports limited range of motion, Reports muscle cramps, Denies muscle weakness, Denies numbness, Denies radiating pain into limb, Denies stiffness and Denies tingling Neuro Denies abnormal gait, Denies dizziness, Denies numbness and Denies tingling Endo Denies palpitations Physical Exam Vital Signs: BMI result Body Mass Index 24.8 Const General: cooperative, healthy appearing, comfortable and no acute distress Orientation/consciousness: patient oriented x3 Neck Neck: Yes normal visual inspection and Yes no JVD Resp Effort & Inspection: normal respiratory effort Auscultation: clear to auscultation bilaterally, no crackles, no rales, no rhonchi and no wheezes Cardio Rate: tachycardic Rhythm: abnormal rhythm Heart sounds: S1 normal heart sound present, S2 normal heart sound present, no murmurs and no rubs Neuro General: patient oriented x3 Extrem General: Yes normal to inspection, No no pedal edema and No calf tenderness Psych Appearance: grossly normal Mental Status: mental status grossly normal Speech and movement: Normal speech and movement present Office Procedures EKG Details: Today, read by me, atrial flutter with variable AV block, nonspecfic ST/ T wave abn, rate 97 [id number], Complete Assessment & Plan Assessment & Plan (1) Atrial fibrillation with rapid ventricular response: Code(s): I48.91 - Unspecified atrial fibrillation Category: Medical Plan: New finding of atrial fibrillation at time of June hospital admission for shortness of breath, edema consistent with acute Congestive heart failure. She was treated with IV diltiazem then transitioned over to metoprolol. Chads Vasc score of 3 and she was started on Eliquis for anticoagulation. Echocardiogram showed EF 45-50%, left atrium moderately enlarged, moderate decrease in the RV systolic function, severe mitral calcification and mild MR. She remained in AFib at the time of discharge. On last visit, 08/16/24 she told me she had run out of medications 10 days prior. EKG showed atrial fibrillation with RVR, rate 113. Recurrent leg edema was starting. She was restarted on Metoprolol, Eliquis, lasix. She could not afford Jardiance. Today she reports having an unsettled feeling to her chest. No sob, chest pains, edema. EKG today shows atrial flutter with variable AV block, rate 97. Will start on Amiodarone 400mg bid for 2 weeks, then reduce to 200mg once daily. labs from 07/05/24 showed AST 34, ALT 35, TSH 1.27. Office EKG in 1 week. Continue Metoprolol as 50mg bid. Continue Eliquis without any interruption. Will set up cardioversion with Dr Sultana in 2 weeks. Cardiology follow up 2 week post procedure. Going forward she will need an ischemic eval and a repeat limited echo to reassess EF. (2) Acute congestive heart failure: Code(s): I50.9 - Heart failure, unspecified Category: Medical Plan: At time of recent admission she was found to have new onset acute Congestive heart failure, most likely related to uncontrolled AFib rates. AFib being treated as above. She is on Lasix 40 mg daily. She does not appear fluid overloaded on exam today. Signs and symptoms of heart failure reviewed with her. Emergency care if ever needed for symptoms. Jardiance previously ordered however she states her insurance company did not allow it and copay was too high for her. Labs from 07/19/24 showed Cr 0.86, BNP 593. Continue Lasix. Plan Time spent on chart review, documentation, interview and assessment Coding Level of Care Code Est Pt Level 3 (83637) Complex EM visit Add On G2211 Diagnoses Atrial fibrillation with rapid ventricular response I48.91 Acute congestive heart failure I50.9 CPT Codes EKG - CPT: 12489-[id number], Complete ([id number]) Time Spent (min) 24
== END 2024-09-07 09:15 | disposition home or self-care (01) ==
PROVIDERS: PCP Family Medicine; Visit Provider Nurse Practitioner Family
DX: I48.91 Unspecified atrial fibrillation (principal); I50.9 Heart failure, unspecified
CPT/HCPCS: 93010; 99213; G2211

== ENCOUNTER → 2024-09-07 08:29 | Outpatient (BNVA) | payer MEDICARE, SELFPAY | PROVIDERS: PCP Family Medicine; Visit Provider Nurse Practitioner Family | DX: I48.91 Unspecified atrial fibrillation (principal); I50.9 Heart failure, unspecified; R94.31 Abnormal electrocardiogram [ECG] [EKG]; I48.92 Unspecified atrial flutter; I44.39 Other atrioventricular block | CPT/HCPCS: 93005; 99212 ==

== ENCOUNTER → 2024-10-11 09:27 | Outpatient (REF) | payer MEDICARE, SELFPAY ==
--- NOTE | 2024-10-11 09:30 | CA_ITS ---
Acquisition Time: 2024-10-11 09:54:13 Total Exercise Time: 00:02:00 Test Indications: AFIB, SOB Medications: SEE H&P Protocol: LEXISCAN Max HR: 79 BPM 55% of Pred: 142 BPM Max BP: 210/100 mmHG Max Work Load: 1.0 METS Pharmacological stress test wih Lexiscan while pt kicks her legs and moves her arm, with reports of nausea and lightheadedness, without any arrythmias, with normotensive response to injection (210/100 initially- came down to 160/70 before starting the test, held her meds). Nondiagnostic EKG for ischemia. In recovery, pt's symptoms subsided. Nuclear images pending. Test reviewed with Dr. Connor. Referred By: Bony Sultana Electronically Signed By: Geo Lozano
== END ==
LOC: HO.CARD 09:27
PROVIDERS: PCP Family Medicine; Visit Provider Internal Medicine Cardiovascular Disease
DX: I48.91 Unspecified atrial fibrillation (principal); I50.9 Heart failure, unspecified
CPT/HCPCS: 93017; J0280; J2785

== ENCOUNTER → 2024-10-11 09:30 | Outpatient (BNV) | payer MEDICARE, SELFPAY | PROVIDERS: PCP Family Medicine | DX: I48.91 Unspecified atrial fibrillation (principal); R06.02 Shortness of breath | CPT/HCPCS: 78452; 93016; 93018 ==

== ENCOUNTER → 2024-11-05 12:14 | Day surgery (SDC) | payer MEDICARE, SELFPAY ==
--- NOTE | 2024-11-03 13:00 | HO.ANESPROP2 ---
HPI - Anesthesia Eval Consult details Narrative: 78yo F for Cardioversion Eliquis for afib PMFSH Active Problems Active Problems: All Active Problems Hospital discharge follow-up (Acute) Acute congestive heart failure (Acute) Atrial fibrillation with rapid ventricular response (Acute) Social History Social History Household Members: None Housing: House Do you presently have visiting nurse or other home services: No Patient Tobacco Use Status: Never used Tobacco e-Cigarette/Vaping Use: Never Used Second Hand Smoke Exposure: No service: No Meds Allergies Allergy/AdvReac Type Severity Reaction Status Date / Time No Known Allergies Allergy Verified 09/07/24 08:35 Home Medications ?Medication ?Instructions ?Recorded ?Confirmed ?Last Taken ?Type multivitamin 1 tab PO DAILY 07/05/24 09/07/24 07/04/24 History Exam Narrative Narrative: EKG 08/2024 atrial flutter with variable AV block, nonspecfic ST/ T wave abn, rate 97 ECHO 06/2024 Conclusions: - 1. Mildly reduced LV ejection fraction 45-50% with elevated filling pressures 2. At least moderately dilated left atrium 3. Mild aortic stenosis 4. Severe mitral calcification with mild mitral regurgitation 5. Normal calculated RV systolic pressure with mildly elevated right atrial pressures 6. No gross pericardial effusion NM cardiolite stress test 09/2024 Impression: 1. Myocardial perfusion imaging study shows normal myocardial perfusion 2. Gated LVEF is 55% 3. Transient ischemic dilatation not present Nondiagnostic changes on EKG. Assessment and Plan Assessment Anesthesia Assessment: Chart Reviewed
--- NOTE | 2024-11-05 11:59 | HO.ANESPROP2 ---
[facility] Active Problems Active Problems: All Active Problems Hospital discharge follow-up (Acute) Acute congestive heart failure (Acute) Atrial fibrillation with rapid ventricular response (Acute) Past Medical History Functional capacity: independent ambulation Patient : No Family History Family history of problems with anesthesia: No Surgical History History of Problems with Anesthesia: No Social History Social History Household Members: None Housing: House Do you presently have visiting nurse or other home services: No Patient Tobacco Use Status: Never used Tobacco e-Cigarette/Vaping Use: Never Used Second Hand Smoke Exposure: No service: No Meds Allergies Allergy/AdvReac Type Severity Reaction Status Date / Time No Known Allergies Allergy Verified 09/07/24 08:35 Home Medications ?Medication ?Instructions ?Recorded ?Confirmed ?Last Taken ?Type multivitamin 1 tab PO DAILY 07/05/24 09/07/24 07/04/24 History Exam Airway Mallampati Class: II TM Dist: >3cm Neck ROM: Full Heart: fast afib Lungs: CTA Assessment and Plan Assessment Anesthesia Assessment: Anesthesia Plan Discussed and Chart Reviewed Final Anesthetic Review Family History of Problems with Anesthesia: No History of Problems with Anesthesia: No NPO: Yes ASA Class: III Final Preanesthetic Review: Meds/Allgs Chart Reviewed, Consent Obtained/Reviewed and Anes Risks/Benef Reviewed
[2024-11-05 12:30] VITALS: BMI 23.2
--- NOTE | 2024-11-05 12:33 | P.CONAN_ITS ---
[facility] Active Problems Active Problems: All Active Problems Hospital discharge follow-up (Acute) Acute congestive heart failure (Acute) Atrial fibrillation with rapid ventricular response (Acute) Past Medical History Functional capacity: independent ambulation Family History Family history of problems with anesthesia: No Surgical History History of Problems with Anesthesia: No Social History Social History Household Members: None Housing: House Do you presently have visiting nurse or other home services: No Patient Tobacco Use Status: Never used Tobacco e-Cigarette/Vaping Use: Never Used Second Hand Smoke Exposure: No Use of substances other than those prescribed or required for medical reasons: No Advance Directives: No Advance Directives Information Provided: Yes Patient : No service: No Meds Allergies Allergy/AdvReac Type Severity Reaction Status Date / Time No Known Allergies Allergy Verified 09/07/24 08:35 Active Medications: Current Medications Lactated Ringer's (Lr) 1,000 mls @ 50 mls/hr IVCONT .Q20H SARAY Naloxone HCl (Naloxone Hcl 0.4 Mg/Ml Vial) 0.04 mg IVPUSH Q5M PRN PRN Reason: Excessive sedation or RR < 8 Home Medications ?Medication ?Instructions ?Recorded ?Confirmed ?Last Taken ?Type multivitamin 1 tab PO DAILY 07/05/24 09/07/24 07/04/24 History Exam Height,Weight and Vital Signs: Height 5 ft Weight 54 kg Airway Mallampati Class: II TM Dist: >3cm Neck ROM: Full Heart: RRR Lungs: CTA Assessment and Plan Assessment Anesthesia Assessment: Anesthesia Plan Discussed and Chart Reviewed Final Anesthetic Review Family History of Problems with Anesthesia: No History of Problems with Anesthesia: No NPO: Yes ASA Class: III Final Preanesthetic Review: Meds/Allgs Chart Reviewed, Consent Obtained/Reviewed and Anes Risks/Benef Reviewed Patient Risk: Intermediate Procedure Risk: Intermediate Anesthetic Plan Anesthetic Plan: GA Disposition: Standard PACU
--- NOTE | 2024-11-05 12:38 | ECG_ITS ---
Test Reason : RYTHM CONFIRMATION Blood Pressure : */* mmHG Vent. Rate : 49 BPM Atrial Rate : 49 BPM P-R Int : 146 ms QRS Dur : 94 ms QT Int : 542 ms P-R-T Axes : 8 -15 40 degrees QTcB Int : 489 ms Sinus bradycardia Moderate voltage criteria for LVH, may be normal variant ( R in aVL , Serge product ) Nonspecific ST abnormality Abnormal ECG When compared with ECG of 05-Jul-2024 10:34, Sinus rhythm has replaced Atrial flutter Vent. rate has decreased by 66 bpm Nonspecific T wave abnormality, improved in Inferior leads Nonspecific T wave abnormality, improved in Lateral leads Referred By: Bony Sultana Electronically Signed By: Robert Connor
== END ==
LOC: HO.SSS 12:15
PROVIDERS: PCP Family Medicine; Visit Provider Internal Medicine Cardiovascular Disease
DX: I48.0 Paroxysmal atrial fibrillation (principal); Z53.8 Procedure and treatment not carried out for other reasons
CPT/HCPCS: 93005; J2704

== ENCOUNTER → 2024-11-05 12:38 | Outpatient (BNV) | payer MEDICARE, SELFPAY | PROVIDERS: PCP Family Medicine; Visit Provider Internal Medicine Cardiovascular Disease | DX: I48.92 Unspecified atrial flutter (principal) | CPT/HCPCS: 93010 ==

== ENCOUNTER 2024-11-22 08:33 | Outpatient (AMB) | payer MEDICARE, SELFPAY ==
--- NOTE | 2024-11-22 08:42 | A.OFFVIS_ITS ---
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 She was noted to have new finding of AFib RVR that was treated with heart rate control. She also had acute heart failure, was diuresed and started on p.o. Lasix. Echocardiogram showed mildly reduced EF. Nuclear stress test was normal. On follow up visit she was still in persistent afib and has symptom of unsettled feeling in her chest. She was started on amiodarone and set up for cardioversion. On 11/05/24 she arrived for the procedure and EKG showed sinus rhythm. She now presents for follow-up. Today she states she has been feeling good overall. She no longer has the unsettled feeling in her chest. No chest discomfort at rest or with activity. Mild sob if she overexerts, which she does not feel is new. No PND, orthopnea or recurrent edema. No lightheadedness, presyncope, syncope. 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 No bleeding issues. Home BPs 120-130 systolic. Taking all meds as directed. [facility] Social History Household Members: None Housing: House Do you presently have visiting nurse or other home services: No Patient Tobacco Use Status: Never used Tobacco e-Cigarette/Vaping Use: Never Used Second Hand Smoke Exposure: No service: No Review of Systems Const All systems reviewed & are unremarkable except as noted in HPI and below ENT Denies dizziness Card Denies chest pain, Denies chest pain at rest, Denies chest pain with activity, Denies rapid heart rate, Denies pedal edema, Denies edema, Denies leg edema, Denies lightheadedness, Denies palpitations, Denies dyspnea, Denies dyspnea on exertion and Denies orthopnea Resp Denies cough, Denies dyspnea and Denies dyspnea on exertion GI Denies hematochezia and Denies change in stool character Musc Denies abnormal gait, Denies limited range of motion, Denies muscle cramps, Denies muscle weakness, Denies numbness, Denies radiating pain into limb, Denies stiffness and Denies tingling Neuro Denies abnormal gait, Denies dizziness, Denies numbness and Denies tingling Endo Denies palpitations Physical Exam Vital Signs: Last Vital Signs Pulse 52 11/22/24 08:43 BP 180/70 H 11/22/24 08:43 BMI result Body Mass Index 24.9 Const General: cooperative, healthy appearing, comfortable and no acute distress Orientation/consciousness: patient oriented x3 Neck Neck: Yes normal visual inspection and Yes no JVD Resp Effort & Inspection: normal respiratory effort Auscultation: clear to auscultation bilaterally, no crackles, no rales, no rhonchi and no wheezes Cardio Rate: tachycardic Rhythm: abnormal rhythm Heart sounds: S1 normal heart sound present, S2 normal heart sound present, no murmurs and no rubs Neuro General: patient oriented x3 Extrem General: Yes normal to inspection, No no pedal edema and No calf tenderness Psych Appearance: grossly normal Mental Status: mental status grossly normal Speech and movement: Normal speech and movement present Office Procedures EKG Details: Today, read by me, Sinus bradycardia, rate 52, Qtc 453ms [id number], Complete Assessment & Plan Assessment & Plan (1) Atrial fibrillation with rapid ventricular response: Code(s): I48.91 - Unspecified atrial fibrillation Category: Medical Plan: New finding of atrial fibrillation at time of June hospital admission for shortness of breath, edema consistent with acute Congestive heart failure. She was treated with IV diltiazem then transitioned over to metoprolol. Chads Vasc score of 3 and she was started on Eliquis for anticoagulation. Echocardiogram showed EF 45-50%, left atrium moderately enlarged, moderate decrease in the RV systolic function, severe mitral calcification and mild MR. She remained in AFib at the time of discharge. On last visit, 08/16/24 she told me she had run out of medications 10 days prior. EKG showed atrial fibrillation with RVR, rate 113. Recurrent leg edema was starting. She was restarted on Metoprolol, Eliquis, lasix. She could not afford Jardiance. Today she reports having an unsettled feeling to her chest. No sob, chest pains, edema. EKG today shows atrial flutter with variable AV block, rate 97. Will start on Amiodarone 400mg bid for 2 weeks, then reduce to 200mg once daily. labs from 07/05/24 showed AST 34, ALT 35, TSH 1.27. Office EKG in 1 week. Continue Metoprolol as 50mg bid. Continue Eliquis without any interruption. Will set up cardioversion with Dr Sultana in 2 weeks. Cardiology follow up 2 week post procedure. Going forward she will need an ischemic eval and a repeat limited echo to reassess EF. (2) Acute congestive heart failure: Code(s): I50.9 - Heart failure, unspecified Category: Medical Plan: During June admission she was found to have new onset acute Congestive heart failure, most likely related to uncontrolled AFib rates. AFib being treated as above. She continues on Lasix 40 mg daily. She does not appear fluid overloaded on exam today. Signs and symptoms of heart failure reviewed with her. Jardiance previously ordered however she states her insurance company did not allow it and copay was too high for her. (3) HTN (hypertension): Code(s): I10 - Essential (primary) hypertension Category: Medical Plan: BP goal < 130/80. Elevated today for unclear reason. Home BPs reported as being 120-130 systolic. Will arrange for office BP recheck in a few days and have her bring home cuff for comparison. Discussed low salt diet. No med changes at present, (4) On amiodarone therapy: Comment: started 09/07/24 Code(s): Z79.899 - Other long-term (current) drug therapy Category: Medical Plan: CXR 07/05/24 interstitial and pulmonary vascular prominence with lateral pleural effusions and airspace opacities - findings can be seen in setting of pulmonary edema. Treated for HF at that time. No rales on exam at this time. Lab orders entered: LFT, TSH Plan Time spent on chart review, documentation, interview and assessment Coding Level of Care Code Est Pt Level 4 (05647) Complex EM visit Add On G2211 Diagnoses Atrial fibrillation with rapid ventricular response I48.91 Acute congestive heart failure I50.9 HTN (hypertension) I10 On amiodarone therapy Z79.899 CPT Codes EKG - CPT: 79142-[id number], Complete ([id number]) Time Spent (min) 28
[2024-11-22 08:43] VITALS: BP 180/70; PULSE 52; BMI 24.9
== END 2024-11-22 09:28 | disposition home or self-care (01) ==
LOC: HO.HCS 08:33
PROVIDERS: PCP Family Medicine; Visit Provider Nurse Practitioner Family
DX: I48.91 Unspecified atrial fibrillation (principal); I50.9 Heart failure, unspecified; I10 Essential (primary) hypertension; Z79.899 Other long term (current) drug therapy
CPT/HCPCS: 93010; 99214; G2211

== ENCOUNTER → 2024-11-22 08:33 | Outpatient (BNVA) | payer MEDICARE, SELFPAY | PROVIDERS: PCP Family Medicine; Visit Provider Nurse Practitioner Family | DX: I48.91 Unspecified atrial fibrillation (principal); I11.0 Hypertensive heart disease with heart failure; I50.9 Heart failure, unspecified; Z79.899 Other long term (current) drug therapy; R00.1 Bradycardia, unspecified | CPT/HCPCS: 93005; 99212 ==

== ENCOUNTER → 2024-11-30 13:43 | Outpatient (BNVA) | payer MEDICARE, SELFPAY | PROVIDERS: PCP Family Medicine; Visit Provider Nurse Practitioner Family | DX: Z13.89 Encounter for screening for other disorder (principal) ==

== ENCOUNTER → 2024-12-29 08:20 | Outpatient (BNVA) | payer MEDICARE, SELFPAY | PROVIDERS: PCP Family Medicine; Visit Provider Nurse Practitioner Family ==

== ENCOUNTER 2025-05-04 14:14 | Outpatient (AMB) | payer MEDICARE, SELFPAY ==
[2025-05-04 14:48] VITALS: BP 138/76; PULSE 50; BMI 25.5
--- NOTE | 2025-05-04 14:48 | A.OFFVIS_ITS ---
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 She is a patient of Berkley and Dr. Sultana. This is her 1st appointment with me. She has background of atrial fibrillation and is on amiodarone for rhythm control strategy and currently has sinus bradycardia on her EKG. She works at [employer] and has been doing quite well and has no chest pain or shortness of breath. Clinically she is stable and not in heart failure. Taking medications regularly. No bleeding concerns. [facility] Social History Household Members: None Housing: House Do you presently have visiting nurse or other home services: No Patient Tobacco Use Status: Never used Tobacco e-Cigarette/Vaping Use: Never Used Second Hand Smoke Exposure: No service: No Review of Systems Const Denies daytime sleepiness, Denies difficulty sleeping, Denies snoring, Denies stops breathing during sleep and Denies weakness Card Denies chest pain, Denies rapid heart rate, Denies irregular heart rhythm, Denies claudication, Denies leg edema, Denies lightheadedness, Denies palpitations, Denies dyspnea, Denies dyspnea on exertion, Denies orthopnea, Denies paroxysmal nocturnal dyspnea and Denies slow heart rate Resp Denies cough, Denies dyspnea, Denies dyspnea on exertion and Denies snoring GI Reports no additional complaints, Denies hematochezia, Denies change in stool character and Denies dyspepsia Musc Denies abnormal gait, Denies muscle weakness and Denies numbness Neuro Denies abnormal gait, Denies numbness and Denies weakness Endo Denies palpitations Physical Exam Vital Signs: Last Vital Signs Pulse 50 10/08/25 14:48 BP 138/76 05/04/25 14:48 BMI result Body Mass Index 25.5 GENERAL APPEARANCE: in no acute distress, pleasant. NECK: no carotid bruit, no jugular venous distention. SKIN: no suspicious lesions, warm and dry. HEART: no murmurs, regular rate and rhythm. Bradycardic. LUNGS: clear to auscultation bilaterally. ABDOMEN: soft, nontender. EXTREMITIES: no edema. PERIPHERAL PULSES: equal. NEUROLOGIC: No gross deficits, AAO X 3 Office Procedures EKG Details: Sinus bradycardia 50 beats per minute, normal axis, nonspecific ST changes, QTC 499 milliseconds. [id number], Complete Assessment & Plan Assessment & Plan (1) PAF (paroxysmal atrial fibrillation): Code(s): I48.0 - Paroxysmal atrial fibrillation Category: Medical (2) Chronic heart failure: Code(s): I50.9 - Heart failure, unspecified Category: Medical Plan Pleasant 79 year female who is here for follow-up. She has history of paroxysmal atrial fibrillation and congestive heart failure. She is currently being treated with rhythm control strategy with amiodarone. She has sinus bradycardia on her EKG. She is active and has no exertional complaints currently. I am not changing any medications currently. She will follow up with Berkley and Dr. Sultana in the future. Thank you for allowing me to participate in the care of your patient. Please feel free to contact me if you have any questions. Coding Level of Care Code Est Pt Level 4 (49793) Diagnoses PAF (paroxysmal atrial fibrillation) I48.0 Chronic heart failure I50.9 CPT Codes EKG - CPT: 35918-[id number], Complete ([id number])
== END 2025-05-04 15:16 | disposition home or self-care (01) ==
LOC: HO.HCS 14:15
PROVIDERS: PCP Family Medicine; Visit Provider Internal Medicine Cardiovascular Disease
DX: I48.0 Paroxysmal atrial fibrillation (principal); I50.9 Heart failure, unspecified
CPT/HCPCS: 93010; 99214

== ENCOUNTER → 2025-05-04 14:14 | Outpatient (BNVA) | payer MEDICARE, SELFPAY | PROVIDERS: PCP Family Medicine; Visit Provider Internal Medicine Cardiovascular Disease | DX: I48.0 Paroxysmal atrial fibrillation (principal); R00.1 Bradycardia, unspecified; I10 Essential (primary) hypertension; I50.9 Heart failure, unspecified | CPT/HCPCS: 93005; 99212 ==